=== PATIENT | female | born 1970 | race Caucasian/White ===

== ENCOUNTER → 2017-10-26 | Outpatient (CLI) | payer BC | END | disposition home or self-care (01) | LOC: MAMMO 16:53 | DX: Z12.31 Encounter for screening mammogram for malignant neoplasm of breast (principal) ==

== ENCOUNTER → 2019-08-15 | Outpatient (CLI) | payer BC | END | disposition home or self-care (01) | LOC: D 09:58 | DX: E11.9 Type 2 diabetes mellitus without complications (principal) ==

== ENCOUNTER 2023-09-18 10:15 | Emergency (ER) | payer OTHER ==
[~2023-09-18] VITALS: Ht 170.1 cm; Wt 92.5 kg
[2023-09-18 10:41] LABS: HEMATOCRIT 52.8 % (37.0-47.0); MEAN CORPUSCULAR HGB CONC 31.4 g/dl (33.0-37.0); MEAN PLATELET VOLUME 9.3 fl (9.6-12.3); PLATELET COUNT AUTOMATED 389 10*3/uL (130-400); RED BLOOD COUNT 6.14 10*6/uL (4.10-5.10); RED CELL DISTRI WIDTH 13.4 % (0-14.5); WHITE BLOOD COUNT 26.3 10*3/uL (4.8-10.8)
[2023-09-18 10:47] LABS: MANUAL DIFF REFLEX YES
[2023-09-18 10:52] LABS: ACT PARTIAL THROMBO TIME 24.5 SECONDS (20.0-32.1)
[2023-09-18] MEDS ORDERED: LISINOPRIL2.5 MG PO (11:01)
[2023-09-18 11:02] LABS: BILIRUBIN 2+ (Negative); BLOOD Negative (Negative); CLARITY Turbid (Clear); COLOR Orange (Yellow); GLUCOSE Trace (Negative); KETONE Trace (Negative); LEUKO ESTERASE 2+ (Negative); NITRITE Positive (Negative); SPECIFIC GRAVITY 1.025 (1.001-1.030)
[2023-09-18 11:03] LABS: POTASSIUM 2.8 mmol/L (3.4-5.1); TOTAL PROTEIN 7.6 gm/dL (6.0-8.0)
[2023-09-18 11:10] LABS: BASOPHILS 1 % (0-1); PLATELET SUFFICIENCY NORMAL (NORMAL); TOTAL CELLS COUNTED 100 #CELLS
[2023-09-18 11:11] LABS: BURR CELLS FEW; TOXIC GRANULATION SLIGHT; VACUOLATION OF NEUTROPHILS SLIGHT
[2023-09-18 11:29] LABS: EPITHELIAL CELLS TNTC; WBC 31-40 wbc/hpf (0-5)
[2023-09-18 11:30] LABS: BACTERIA 4+
== END 2023-09-18 21:07 | disposition short-term general hospital (02) ==
LOC: ED 10:15
PROVIDERS: Student in an Organized Health Care Education/Training Program
DX: K85.90 Acute pancreatitis without necrosis or infection, unspecified (principal); K80.50 Calculus of bile duct without cholangitis or cholecystitis without obstruction; Z91.040 Latex allergy status

== ENCOUNTER → 2023-10-26 | Outpatient (CLI) | payer OTHER ==
[~2023-10-26] MED LIST: LISINOPRIL2.5 MG PO
== END | disposition home or self-care (01) ==
LOC: CARD 00:33
PROVIDERS: ATTEND Physician Assistant
DX: I51.7 Cardiomegaly (principal)

== ENCOUNTER → 2024-03-09 | Outpatient (CLI) | payer OTHER | END | disposition home or self-care (01) | LOC: US 01:36 | PROVIDERS: ATTEND Physician Assistant | DX: K86.89 Other specified diseases of pancreas (principal); I10 Essential (primary) hypertension; E11.9 Type 2 diabetes mellitus without complications; Z90.49 Acquired absence of other specified parts of digestive tract ==

== ENCOUNTER 2024-03-20 13:52 | Emergency (ER) | payer OTHER ==
[~2024-03-20] VITALS: Ht 170.1 cm; Wt 72.6 kg
[2024-03-20 13:57] VITALS: BP 128/61
[2024-03-20] MEDS ORDERED: FEROSUL325 M1 PO (13:59)
[2024-03-20] MEDS ORDERED: LANTUS SOL100 UNIT/1 SC (14:00)
[2024-03-20] MEDS ORDERED: HUMALOG100 UNIT/1 SC (14:00)
[2024-03-20] MEDS ORDERED: PANTOPRAZOLE SO40 MG PO (14:00)
[2024-03-20] MEDS ORDERED: SODIUM CHLORIDE 0.9% 1,000 ML IV ONE (14:20)
[2024-03-20] MEDS ORDERED: IOHEXOL 300 MG/ML 100 ML VIAL IV ONE (14:30)
[2024-03-20 14:34] LABS: HEMATOCRIT 32.7 % (37.0-47.0); MEAN CELL VOLUME 84.5 fl (81.0-99.0); MEAN CORPUSCULAR HGB 27.1 pg (27.0-31.0); MEAN CORPUSCULAR HGB CONC 32.1 g/dl (33.0-37.0); MEAN PLATELET VOLUME 9.4 fl (9.6-12.3); PLATELET COUNT AUTOMATED 280 10*3/uL (130-400); RED BLOOD COUNT 3.87 10*6/uL (4.10-5.10); WHITE BLOOD COUNT 18.5 10*3/uL (4.8-10.8)
[2024-03-20 14:35] LABS: MANUAL DIFF REFLEX YES
[2024-03-20 14:55] LABS: POTASSIUM 3.8 mmol/L (3.4-5.1); TOTAL PROTEIN 7.2 gm/dL (6.0-8.0)
[2024-03-20 14:56] LABS: BURR CELLS FEW; PLATELET SUFFICIENCY NORMAL (NORMAL); ROULEAUX SLIGHT; TOTAL CELLS COUNTED 100 #CELLS
[2024-03-20 14:57] LABS: OVALOCYTES FEW
[2024-03-20 15:20] LABS: BILIRUBIN Negative (Negative); BLOOD Negative (Negative); CLARITY Cloudy (Clear); COLOR Orange (Yellow); GLUCOSE Trace (Negative); KETONE Trace (Negative); LEUKO ESTERASE Trace (Negative); NITRITE Negative (Negative); PH 5.5 (4.5-8.0); SPECIFIC GRAVITY >= 1.030 (1.001-1.030)
[2024-03-20 15:28] VITALS: BP 117/66
[2024-03-20] MEDS ORDERED: SODIUM CHLORIDE 0.9% 1,000 ML IV SCH (15:30)
[2024-03-20] MEDS ORDERED: ACETAMINOPHEN 325 MG TAB PO ONE (15:30)
[2024-03-20 16:05] LABS: BACTERIA 2+; EPITHELIAL CELLS TNTC; RBC 0-2 rbc/hpf (0-2)
[2024-03-20] MEDS ORDERED: Piperacillin Sodium/Tazobact 100 ML IV ONE (16:10)
[2024-03-20] MEDS ORDERED: Vancomycin Hydrochloride 250 ML IV ONE (16:20)
[2024-03-20 17:12] VITALS: BP 115/58
[2024-03-20 19:38] VITALS: BP 113/57
[2024-03-20] MEDS ORDERED: Insulin Glargine, Recombinan 1 UNIT/0.01 ML SC ONE (22:50)
[2024-03-21 01:25] VITALS: BP 110/58
[2024-03-21 06:31] VITALS: BP 112/47
[2024-03-21 09:42] VITALS: BP 108/65
[2024-03-21] MEDS ORDERED: SODIUM CHLORIDE 0.9% 1,000 ML IV ONE (09:45)
== END 2024-03-21 12:39 | disposition short-term general hospital (02) ==
LOC: ED 13:52 → EDHOLD 03-21 07:14 → ED 03-21 12:39
PROVIDERS: Physician Assistant Medical
DX: K85.91 Acute pancreatitis with uninfected necrosis, unspecified (principal); R65.20 Severe sepsis without septic shock; E11.9 Type 2 diabetes mellitus without complications; R53.1 Weakness; R42 Dizziness and giddiness

== ENCOUNTER → 2024-04-13 | Outpatient (CLI) | payer OTHER ==
[~2024-04-13] MED LIST changes: +FEROSUL325 M1 PO; +HEPARIN SODIUM 300 UNITS/3 ML SYR IV SCH; +HUMALOG100 UNIT/1 SC; +IOHEXOL 300 MG/ML 100 ML VIAL IV ONE; +IOHEXOL 300 MG/ML 100 ML VIAL ONE; +LANTUS SOL100 UNIT/1 SC; +PANTOPRAZOLE SO40 MG PO
== END | disposition home or self-care (01) ==
LOC: CT 00:58
PROVIDERS: ATTEND Internal Medicine
DX: K86.89 Other specified diseases of pancreas (principal); K76.89 Other specified diseases of liver; Z98.890 Other specified postprocedural states

== ENCOUNTER → 2024-04-19 | Outpatient (CLI) | payer OTHER ==
[~2024-04-19] MED LIST changes: -HEPARIN SODIUM 300 UNITS/3 ML SYR IV SCH; -IOHEXOL 300 MG/ML 100 ML VIAL IV ONE; -IOHEXOL 300 MG/ML 100 ML VIAL ONE
== END | disposition home or self-care (01) ==
LOC: RAD 11:51
PROVIDERS: ATTEND Physician Assistant
DX: M43.17 Spondylolisthesis, lumbosacral region (principal); M85.88 Other specified disorders of bone density and structure, other site; M21.372 Foot drop, left foot

== ENCOUNTER → 2024-04-26 | Outpatient (CLI) | payer OTHER ==
[~2024-04-26] MED LIST changes: +GADOTERATE MEGLUMINE 7.5 MMOL/15 ML VIAL IV ONE
== END | disposition home or self-care (01) ==
LOC: MRI 00:45
PROVIDERS: ATTEND Physician Assistant
DX: M47.816 Spondylosis without myelopathy or radiculopathy, lumbar region (principal); M51.36 Other intervertebral disc degeneration, lumbar region; M21.372 Foot drop, left foot; I10 Essential (primary) hypertension; E11.9 Type 2 diabetes mellitus without complications; Z90.49 Acquired absence of other specified parts of digestive tract

== ENCOUNTER → 2024-05-09 | Outpatient (CLI) | payer OTHER ==
[~2024-05-09] MED LIST changes: -GADOTERATE MEGLUMINE 7.5 MMOL/15 ML VIAL IV ONE; +IOHEXOL 300 MG/ML 100 ML VIAL IV ONE
== END | disposition home or self-care (01) ==
LOC: CT 02:07
PROVIDERS: ATTEND Internal Medicine Gastroenterology
DX: K76.0 Fatty (change of) liver, not elsewhere classified (principal); K86.89 Other specified diseases of pancreas; K85.90 Acute pancreatitis without necrosis or infection, unspecified; K86.2 Cyst of pancreas; D18.09 Hemangioma of other sites; Z90.49 Acquired absence of other specified parts of digestive tract

== ENCOUNTER → 2024-06-05 | Outpatient (CLI) | payer OTHER ==
[~2024-06-05] MED LIST changes: -IOHEXOL 300 MG/ML 100 ML VIAL IV ONE
== END | disposition home or self-care (01) ==
LOC: MRI 02:39
PROVIDERS: ATTEND Internal Medicine Gastroenterology
DX: K76.0 Fatty (change of) liver, not elsewhere classified (principal); K86.89 Other specified diseases of pancreas

== ENCOUNTER → 2024-12-12 | Outpatient (CLI) | payer OTHER ==
[2024-12-12 10:23] LABS: ALKALINE PHOSPHATASE 104 U/L (46-116); BUN 19 mg/dl (9-23); CHLORIDE 101 mmol/L (98-107); CHOLESTEROL 190 mg/dL (<200); LDL CHOLESTEROL 115 mg/dL (9-159); POTASSIUM 4.1 mmol/L (3.4-5.1); SGPT/ALT 23 U/L (5-49); TOTAL PROTEIN 7.5 gm/dL (6.0-8.0); TRIGLYCERIDES 42 mg/dl (<150)
== END | disposition home or self-care (01) ==
LOC: LAB 02:02
PROVIDERS: Student in an Organized Health Care Education/Training Program; ATTEND Internal Medicine Endocrinology, Diabetes & Metabolism
DX: E11.9 Type 2 diabetes mellitus without complications (principal); E78.5 Hyperlipidemia, unspecified

== ENCOUNTER → 2024-12-13 | Outpatient (CLI) | payer OTHER ==
[~2024-12-13] MED LIST changes: +IOHEXOL 300 MG/ML 100 ML VIAL IV ONE; +IOHEXOL 300 MG/ML 100 ML VIAL ONE
== END | disposition home or self-care (01) ==
LOC: CT 00:06
PROVIDERS: ATTEND Internal Medicine Gastroenterology
DX: K85.90 Acute pancreatitis without necrosis or infection, unspecified (principal); K86.89 Other specified diseases of pancreas; K76.89 Other specified diseases of liver

== ENCOUNTER → 2025-06-09 | Outpatient (CLI) | payer OTHER ==
[~2025-06-09] MED LIST changes: -IOHEXOL 300 MG/ML 100 ML VIAL IV ONE; -IOHEXOL 300 MG/ML 100 ML VIAL ONE
[2025-06-09 10:27] LABS: BUN 18 mg/dl (9-23); LDL CHOLESTEROL 95 mg/dL (9-159); SGPT/ALT 27 U/L (5-49)
== END | disposition home or self-care (01) ==
LOC: LAB 00:05
PROVIDERS: Student in an Organized Health Care Education/Training Program; ATTEND Internal Medicine Endocrinology, Diabetes & Metabolism
DX: E11.9 Type 2 diabetes mellitus without complications (principal); E78.5 Hyperlipidemia, unspecified